=== PATIENT | female | born 1960 | race Caucasian/White ===

== ENCOUNTER 2024-02-05 10:19 | Emergency (ER) | payer MEDICARE, OTHER, SELFPAY ==
[2024-02-05] VITALS (37 sets, daily range): BP systolic 71–133; BP diastolic 49–70; PULSE 89–143; RESP 19–44; TEMP 37.2; O2SAT 89–100; BMI 53.4
--- NOTE | 2024-02-05 10:28 | DI.RAD.S_ITS ---
PROCEDURE: XR CHEST 1V INDICATIONS: Shortness of breath TECHNIQUE: One view of the chest was acquired. COMPARISON: None. FINDINGS: Surgical changes and devices: None. Lungs and pleura: Question mild interstitial pulmonary edema. No pleural effusions or pneumothorax. Mediastinum: Mediastinal contours appear normal. At least moderate cardiomegaly. Bones and chest wall: No suspicious bony lesions. Overlying soft tissues appear unremarkable. IMPRESSION: At least moderate cardiomegaly, question mild interstitial pulmonary edema. Dictated by: Bradley Keenan M.D. on 02/05/2024 at 10:53 Approved by: Bradley Keenan M.D. on 02/05/2024 at 10:54
[2024-02-05 11:11] LABS: Add Manual Diff / Slide Review NO; Basophils Absolute Auto 0 /uL (0-100); Basophils Percent Auto 0.4 % (0-2); Eosinophils Absolute Auto 0 /uL (0-450); Hematocrit 38.8 % (36-46); Hemoglobin 12.4 g/dL (12.0-16.0); Lymphocytes Absolute Auto 300 /uL (1100-4500); Lymphocytes Percent Auto 2.8 % (25-40); Mean Corpuscular HGB Conc 31.9 % (30-36); Mean Corpuscular Hemoglobin 28.5 PG (26-34); Mean Corpuscular Volume 89.4 fL (80-100); Monocytes Absolute Auto 400 /uL (0-900); Monocytes Percent Auto 3.1 % (3-14); Neutrophils Absolute Auto 11100 /uL (1500-7000); Neutrophils Percent Auto 93.7 % (50-75); Platelet Count 269 X10^3/uL (150-400); Red Blood Cell Count 4.34 X10^6/uL (4.0-5.2); Red Cell Distribution Width 15.4 % (11.6-14.8); White Blood Cell Count 11.9 X10^3/uL (4.5-11.0)
[2024-02-05 11:19] LABS: Alanine Aminotransferase 46 IU/L (<35); Albumin 3.9 g/dL (3.5-5.0); Albumin Globulin Ratio 1.2 (1.0-2.8); Alkaline Phosphatase 116 U/L (38-126); Aspartate Aminotransferase 42 IU/L (14-36); BUN Creatinine Ratio 22.5 (6-22); Bilirubin Total 1.2 mg/dL (0.2-1.3); Blood Urea Nitrogen 20 mg/dL (7-17); Calcium 8.9 mg/dL (8.4-10.2); Carbon Dioxide 30 mmol/L (22-32); Chloride 98 mmol/L (98-107); Estimated Glomerular Filt Rate > 60 mL/min (>60); Globulin 3.3 g/dL (1.7-4.1); Glucose 148 mg/dL (80-110); HEMOLYSIS < 15 (0-50); Lactate (Lactic Acid) 2.1 mmol/L (0.7-2.1); Potassium 3.8 mmol/L (3.4-5.1); Sodium 135 mmol/L (137-145); Total Protein 7.2 g/dL (6.3-8.2)
[2024-02-05 11:31] LABS: NT-proBNP (BNP-Adult 18+) 5110 pg/mL (<125); Troponin I 0.019 ng/mL (0.01-0.034)
--- NOTE | 2024-02-05 11:41 | EKG_ITS ---
[address] [address] Test Date: 2024-02-05 Pat Name: Agnieszka Devlin Department: [facility] Room: Gender: Female Ward Aide: MARLA : 1960 Requested By: Order Number: [id number] Reading MD: Jordin Sarabia MD Measurements Intervals [place] Rate: 95 P: RI: QRS: 72 QRSD: 84 T: 120 QT: 284 QTc: 356 Interpretive Statements Atrial fibrillation Nonspecific T wave abnormality NO PRIOR TRACING Electronically Signed On 02-05-2024 16:40:09 PST by Jordin Sarabia MD
[2024-02-05 12:34] LABS: Reflexed Lactate in 2 Hours Y
--- NOTE | 2024-02-05 12:36 | ED_ITS ---
HPI - SOB/Dyspnea General Chief Complaint: Shortness of Breath/Dyspnea Stated Complaint: Hard time breathing Time Seen by Provider: 02/05/24 12:27 Source: patient Mode of arrival: Wheelchair History of Present Illness HPI Narrative: 63-year-old female past medical history significant for atrial fibrillation with prior ablation on Eliquis, type 2 diabetes on insulin, obesity on 2 L home O2. Patient presents with complaint of increasing shortness of breath, states she was not [place] treated for COVID as well as CHF received Lasix got significantly better and felt much better at discharge. She slowly had increasing dyspnea again. Denies any fevers has had some chills. States she has some congestion in her nose. Occasionally has had some chest discomfort when she exerts herself. Denies any nausea or vomiting. States legs are swollen but not as swollen. States she was about 9 lb less since discharge. Has reportedly been taking 60 mg of Lasix although was discharged home on 40 mg per discharge summary. Patient states no issues with bowel movements or urination. Notes she has not been eating much in the last day. They also note that she was supposed to be refitted for a new CPAP mask. Patient's home medications include Eliquis, metoprolol, lisinopril, atorvastatin, Jardiance, spironolactone, metformin, magnesium, calcium carbonate, pregabalin. Patient has had prior cardiac ablation x2 had a stroke about a week after her 1st 1 and then had recurrent ablation about 6 months after that. She states she does have use of her left side. Has been told by her cyanide case hardener that she was not really candidate for cardioversion. Allergic to penicillin and sulfa. Quit smoking 20 years ago, quit alcohol at the same time, no recreational drugs. She was accompanied by her . Her cyanide case hardener is Dr. Angeles and Dr. Phoenix is her blow torch burner. Maricarmen De Los Santos is her primary care physician. Related Data Previous Rx's Medication Instructions Recorded furosemide 20 mg tablet (Lasix) 60 mg (3 x 20 mg) PO DAILY #30 tabs 02/05/24 metoprolol succinate 25 mg capsule 25 mg PO BID #30 ea 02/05/24 sprinkle, ext. release 24 hr Allergies Allergy/AdvReac Type Severity Reaction Status Date / Time SULFA Allergy Severe BLISTERS Uncoded 02/05/24 10:28 ON LIPS PENICILLIN Allergy Mild UPSET Uncoded 02/05/24 10:28 STOMACH Review of Systems Review of Systems ROS Unobtainable: All systems reviewed & are unremarkable except as noted in HPI and below Patient History Medical History (Updated 02/05/24 @ 18:44 by Pedro Fatima DO) Embolic stroke Type 2 diabetes mellitus Obesity Diastolic heart failure Chronic atrial fibrillation Social History Smoking Status: Former smoker Smoking Status: Former smoker Substance Use Type: does not use Exam Narrative Exam Narrative: GENERAL: Alert and oriented x three, obese female in duys-ka-wzlmdenh distress. HEENT: Head normocephalic, atraumatic, EOMI, pupils reactive, face symmetric, moist mucous membranes NECK: Supple, full range of motion CARDIOVASCULAR: Irregularly irregular rate and rhythm without murmurs, rubs or gallops. RESPIRATORY: Breath sounds equal bilaterally, no wheezes rhonchi, crackles bilateral bases. Mild tachypnea. Speaks in 3-4 word sentences. ABDOMEN: Soft, nontender. Normoactive bowel sounds all 4 quadrants. No guarding or rebound, rigidity, no mass : No CVA tenderness EXTREMITIES: Normal range of motion, bilateral lower extremity edema. Neurovascularly intact NEUROLOGICAL: Cranial nerves II through XII grossly intact. Moving all extremities SKIN: Warm, dry, no petechiae, no rashes or lesions. Initial Vital Signs Initial Vital Signs: Vital Signs Temperature 99 F 02/05/24 10:25 Pulse Rate 114 H 02/05/24 10:25 Respiratory Rate 28 H 02/05/24 10:25 Blood Pressure 109/57 L 02/05/24 10:25 Pulse Oximetry 91 02/05/24 10:25 Oxygen Delivery Method Nasal Cannula 02/05/24 10:25 Oxygen Flow Rate 2 02/05/24 10:25 Course Orders Ordered: Discontinued Medications Acetaminophen (Acetaminophen 325 Mg Tablet) 650 mg PO NOW ONE Stop: 02/05/24 12:43 Last Admin: 02/05/24 12:56 Dose: 650 mg Documented By: RIAN Albuterol (Albuterol 2.5 Mg/3 Ml Neb (Adult)) 2.5 mg INH NOW ONE Stop: 02/05/24 13:09 Last Admin: 02/05/24 13:23 Dose: 2.5 mg Documented By: BEBETO Digoxin (Digoxin 500 Mcg/2 Ml Ampul) 500 mcg IV NOW ONE Stop: 02/05/24 14:54 Last Admin: 02/05/24 15:31 Dose: 500 mcg Documented By: RL Furosemide (Furosemide 40 Mg/4 Ml Vial) 40 mg IV NOW ONE Stop: 02/05/24 12:42 Last Admin: 02/05/24 12:56 Dose: 40 mg Documented By: RIAN Vital Signs Vital signs: Vital Signs - 8 hr 02/05/24 10:25 02/05/24 12:55 02/05/24 13:00 Temperature 99 F Pulse Rate 114 H 99 H 142 H Respiratory Rate 28 H 44 H 34 H Blood Pressure 109/57 L Pulse Oximetry 91 98 95 Oxygen Delivery Method Nasal Cannula Nasal Cannula Oxygen Flow Rate 2 2 Fraction of Inspired Oxygen 02/05/24 13:16 02/05/24 13:16 02/05/24 13:24 Temperature Pulse Rate 105 H 108 H Respiratory Rate 25 H 20 Blood Pressure 114/61 Pulse Oximetry 99 98 Oxygen Delivery Method Nasal Cannula Nasal Cannula Oxygen Flow Rate 2 2 Fraction of Inspired Oxygen 28 02/05/24 13:30 02/05/24 13:30 02/05/24 14:00 Temperature Pulse Rate 95 H Respiratory Rate 27 H Blood Pressure 103/66 89/54 L Pulse Oximetry 92 Oxygen Delivery Method Oxygen Flow Rate Fraction of Inspired Oxygen 02/05/24 14:00 02/05/24 14:04 02/05/24 14:04 Temperature Pulse Rate 106 H 121 H Respiratory Rate 23 23 Blood Pressure 95/52 L Pulse Oximetry 94 94 Oxygen Delivery Method Nasal Cannula Oxygen Flow Rate 2 Fraction of Inspired Oxygen 02/05/24 14:11 02/05/24 14:11 02/05/24 14:13 Temperature Pulse Rate 143 H Respiratory Rate 26 H Blood Pressure 80/51 L 109/55 L Pulse Oximetry 92 Oxygen Delivery Method Nasal Cannula Oxygen Flow Rate 2 Fraction of Inspired Oxygen 02/05/24 14:13 02/05/24 14:15 02/05/24 14:15 Temperature Pulse Rate 127 H 112 H Respiratory Rate 26 H 23 Blood Pressure 88/53 L Pulse Oximetry 94 95 Oxygen Delivery Method Nasal Cannula Oxygen Flow Rate 2 Fraction of Inspired Oxygen 02/05/24 14:20 02/05/24 14:20 02/05/24 14:25 Temperature Pulse Rate 118 H Respiratory Rate 23 Blood Pressure 83/58 L 83/51 L Pulse Oximetry 94 Oxygen Delivery Method Oxygen Flow Rate Fraction of Inspired Oxygen 02/05/24 14:25 02/05/24 14:30 02/05/24 14:30 Temperature Pulse Rate 122 H 115 H Respiratory Rate 24 20 Blood Pressure 90/52 L Pulse Oximetry 93 92 Oxygen Delivery Method Oxygen Flow Rate Fraction of Inspired Oxygen 02/05/24 14:35 02/05/24 14:35 02/05/24 14:40 Temperature Pulse Rate 118 H Respiratory Rate 21 Blood Pressure 85/54 L 71/52 L Pulse Oximetry 92 Oxygen Delivery Method Oxygen Flow Rate Fraction of Inspired Oxygen 02/05/24 14:40 02/05/24 14:43 02/05/24 14:43 Temperature Pulse Rate 119 H 126 H Respiratory Rate 25 H 22 Blood Pressure 75/52 L Pulse Oximetry 91 94 Oxygen Delivery Method Oxygen Flow Rate Fraction of Inspired Oxygen 02/05/24 14:45 02/05/24 14:45 02/05/24 14:50 Temperature Pulse Rate 103 H 114 H Respiratory Rate 20 23 Blood Pressure 85/52 L Pulse Oximetry 93 93 Oxygen Delivery Method Oxygen Flow Rate Fraction of Inspired Oxygen 02/05/24 14:50 02/05/24 14:55 02/05/24 14:55 Temperature Pulse Rate 103 H Respiratory Rate 22 Blood Pressure 85/54 L 82/51 L Pulse Oximetry 93 Oxygen Delivery Method Oxygen Flow Rate Fraction of Inspired Oxygen 02/05/24 15:00 02/05/24 15:05 02/05/24 15:05 Temperature Pulse Rate 119 H 130 H Respiratory Rate 20 24 Blood Pressure 93/54 L Pulse Oximetry 95 Oxygen Delivery Method Oxygen Flow Rate Fraction of Inspired Oxygen 02/05/24 15:10 02/05/24 15:10 02/05/24 15:15 Temperature Pulse Rate 102 H Respiratory Rate 25 H Blood Pressure 101/54 L 100/49 L Pulse Oximetry 96 Oxygen Delivery Method Oxygen Flow Rate Fraction of Inspired Oxygen 02/05/24 15:15 02/05/24 15:20 02/05/24 15:20 Temperature Pulse Rate 108 H 107 H Respiratory Rate 24 24 Blood Pressure 93/52 L Pulse Oximetry 98 97 Oxygen Delivery Method Oxygen Flow Rate Fraction of Inspired Oxygen 02/05/24 15:25 02/05/24 15:25 02/05/24 15:30 Temperature Pulse Rate 104 H Respiratory Rate 24 Blood Pressure 102/56 L 105/55 L Pulse Oximetry 98 Oxygen Delivery Method Oxygen Flow Rate Fraction of Inspired Oxygen 02/05/24 15:30 02/05/24 15:31 02/05/24 15:35 Temperature Pulse Rate 103 H 94 H 100 H Respiratory Rate 24 24 Blood Pressure 105/55 L Pulse Oximetry 100 100 Oxygen Delivery Method Oxygen Flow Rate Fraction of Inspired Oxygen 02/05/24 15:35 02/05/24 15:40 02/05/24 15:40 Temperature Pulse Rate 94 H Respiratory Rate 23 Blood Pressure 111/57 L 119/70 Pulse Oximetry 99 Oxygen Delivery Method Nasal Cannula Oxygen Flow Rate 2 Fraction of Inspired Oxygen 02/05/24 15:45 02/05/24 15:45 02/05/24 15:50 Temperature Pulse Rate 91 H 89 Respiratory Rate 24 23 Blood Pressure 129/60 Pulse Oximetry 98 95 Oxygen Delivery Method Nasal Cannula Oxygen Flow Rate 2 Fraction of Inspired Oxygen 02/05/24 15:50 02/05/24 15:55 02/05/24 15:55 Temperature Pulse Rate 92 H Respiratory Rate 23 Blood Pressure 124/58 L 133/62 Pulse Oximetry 98 Oxygen Delivery Method Nasal Cannula Oxygen Flow Rate 2 Fraction of Inspired Oxygen MDM - SOB/Dyspnea Lab Data 02/05/24 10:41 02/05/24 10:41 Labs: Lab Results 02/05/24 02/05/24 Range/Units 10:41 14:35 WBC 11.9 H (4.5-11.0) X10^3/uL RBC 4.34 (4.0-5.2) X10^6/uL Hgb 12.4 (12.0-16.0) g/dL Hct 38.8 (36-46) % MCV 89.4 (80-100) fL MCH 28.5 (26-34) PG MCHC 31.9 (30-36) % RDW 15.4 H (11.6-14.8) % Plt Count 269 (150-400) X10^3/uL Neut % (Auto) 93.7 H (50-75) % Lymph % (Auto) 2.8 L (25-40) % [place] % (Auto) 3.1 (3-14) % Eos % (Auto) 0.0 L (2-4) % Baso % (Auto) 0.4 (0-2) % Neut # (Auto) 75166 H (0236-7647) /uL Lymph # (Auto) 300 L (6289-1131) /uL [place] # (Auto) 400 (0-900) /uL Eos # (Auto) 0 (0-450) /uL Baso # (Auto) 0 (0-100) /uL PT 22.0 H (9.4-12.5) SECONDS INR 2.0 H (0.9-1.3) Sodium 135 L (137-145) mmol/L Potassium 3.8 (3.4-5.1) mmol/L Chloride 98 (98-107) mmol/L Carbon Dioxide 30 (22-32) mmol/L BUN 20 H (7-17) mg/dL Creatinine 0.89 (0.52-1.04) mg/dL Estimated GFR > 60 (>60) mL/min BUN/Creatinine Ratio 22.5 H (6-22) Glucose 148 H (80-110) mg/dL Lactate 2.1 1.5 (0.7-2.1) mmol/L Calcium 8.9 (8.4-10.2) mg/dL Total Bilirubin 1.2 (0.2-1.3) mg/dL AST 42 H (14-36) IU/L ALT 46 H (<35) IU/L Alkaline Phosphatase 116 (38-126) U/L Troponin I 0.019 0.019 (0.01-0.034) ng/mL NT-Pro-B Natriuret Pep 5110 H (<125) pg/mL Total Protein 7.2 (6.3-8.2) g/dL Albumin 3.9 (3.5-5.0) g/dL Globulin 3.3 (1.7-4.1) g/dL Albumin/Globulin Ratio 1.2 (1.0-2.8) Urine Dip Bedside Urine Glucose 1000 mg/dl Bedside Urine Bilirubin - Negative Bedside Urine Ketone - Negative Urine Specific [place] 1.005 Bedside Urine Occult Blood - Negative Bedside Urine pH 6.5 Bedside Urine Protein - Negative Bedside Urine Urobilinogen - Negative Bedside Urine Nitrite - Negative Bedside Urine Leukocytes - Negative Esterase Imaging Data Chest x-ray: Radiologist's Impression: Agnieszka Devlin??63??F??1960 ? Allergy/Adv: [SULFA], [PENICILLIN] Close Chest X-Ray (Signed) Bradley Keenan - 02/05/24 Launch?Image [address] [address] XRay Report Signed Patient: Agnieszka Devlin MR#: [id number] : 1960 Acct:[id number] Age/Sex: 63 / F Date of Service: 02/05/24 Loc: ED Accession Number: [id number] Procedure: XR chest 1V Ordering Provider: Beth Moore D.O. PROCEDURE: XR CHEST 1V INDICATIONS: Shortness of breath TECHNIQUE: One view of the chest was acquired. COMPARISON: None. FINDINGS: Surgical changes and devices: None. Lungs and pleura: Question mild interstitial pulmonary edema. No pleural effusions or pneumothorax. Mediastinum: Mediastinal contours appear normal. At least moderate cardiomegaly. Bones and chest wall: No suspicious bony lesions. Overlying soft tissues appear unremarkable. IMPRESSION: At least moderate cardiomegaly, question mild interstitial pulmonary edema. Dictated by: Bradley Keenan M.D. on 02/05/2024 at 10:53 Approved by: Bradley Keenan M.D. on 02/05/2024 at 10:54 ECG Data Attestation: I personally reviewed and interpreted this ECG as follows: Prior ECG tracings: not available for review Interpretation: AFib with rate of 95, QRS 84 QTC of 356. No acute ST elevation or depression. MDM Narrative Medical decision making narrative: Increased shortness of breath treated at [place] last week for congestive heart failure and COVID. Patient states she was discharged from [place] 60 mg daily, felt much better at discharge in his had recurrent dyspnea. White blood cell count 11.9 hemoglobin 12.4, platelets of 269, predominance of neutrophils. INR is 2, sodium is 135 potassium 3.8 chloride 98 CO2 is 30 BUN 22 creatinine 0.89 glucose of 148 total bili is normal 1.2 AST ALT are slightly elevated at 42 and 46 troponin 0.019 with a BNP of 5110. No prior labs available for comparison. Repeat troponin Chest x-ray shows moderate cardiomegaly question mild interstitial pulmonary edema. EKG shows AFib rate of 95, no acute ST elevation or depression. Lasix 40mg, patient did have 60mg earlier today. Attempting to get ECHO report from [place], patient's discharge diagnosis CHF, atrial fibrillation, COVID had 7 L urine output during her stay over proximally 24 hours. Patient's labs at [place] note a BNP in the 300 range appears to likely be a pro BNP with similar caught off values, they have high sensitive troponin which was negative. Patient does have recent COVID infection with increased shortness of breath slightly tachycardic slightly hypotensive her normal home O2 of 2 L, patient is anticoagulants Eliquis so PE seems less likely to be source. She has had increased orthopnea although states swelling of her lower extremities has been somewhat improved. 1L urine output prior to lasix Spoke with Dr. Angeles, cardiology. He is on-call in his also patient's personal cyanide case hardener. He was familiar with the patient states she had an EF of 50 55% with a normal in July. Reviewed patient's findings her most recent hospitalization and workup. He does not have access to her recent echo either would recommend repeat echo for unable to obtain. Did not note that when patient has been moved out of her bed she wanted to be more upright became quite tachycardic with a AFib RVR and hypotensive. Has been somewhat persistent but was moved back to the bed. She notes that she would have intermittent elevations up to 180 beats per minute but had some longer pauses had her metoprolol decreased from 50-25 mg daily several months ago. He would recommend loading with digoxin 500 mcg, can continue with 250 mcg every 6 hours but to monitor closely for any potential bradycardia. Spoke with Dr. Fatima hospitalist; discussed patient prior to AFib RVR, reviewed recommendations from Cardiology awaiting repeat troponin and will call back. Repeat troponins negative, Dr. Fatima came and evaluated the patient. He also spoke with Dr. Angeles as well after further discussion patient's preferences to return home. He did offer observation with digoxin loading. She did receive a single dose of digoxin but we will continue with plan for metoprolol 25 mg b.i.d. and continuing Lasix 60 mg daily on outpatient. Discussed with patient and her . Patient wishes for discharge home. Patient's is going to stop by Cardiology before she was discharged to help set up follow up appointment discussed return precautions. Patient appears improved prior to discharge. Was with a walker and able to ambulate a little bit easier. Work of breathing has not improved. Critical Care Time Critical Care Time Critical Care Time: Yes Total Critical Care Time: 45 Attestation: The high probability of a clinically significant, sudden or life threatening deterioration of the cardiac/pulmonary system(s) required my full and direct attention, intervention and personal management. The aggregate critical care time was [--] minutes. This time is in addition to time spent performing reported procedures but includes the following: [x] Data Review and interpretation [x] Patient assessment and monitoring of vital signs [x] Documentation [x] Medication orders and management Discharge Plan Departure Patient Disposition: Home Clinical Impression: Acute on chronic congestive heart failure, Atrial fibrillation with rapid ventricular response Activity Restrictions/Additional Instructions: Follow up with Cardiology. I spoke with Dr. Angeles your cyanide case hardener today he is aware that you have been in the emergency department and of your workup. I was unable to obtain your echo today but talk with your cyanide case hardener and/or primary care to follow up this report. Please continue with your furosemide or Lasix 60 mg daily. A prescription for additional is included in your discharge paperwork. Also please increase your metoprolol to 25 mg twice daily. A prescription for extra metoprolol is also included. Please return if you are having new or worsening lightheadedness or passing out, increasing chest pain or shortness of breath, increasing swelling of your extremities, increasing weight consistent with water retention or other new or concerning changes. Prescriptions: New metoprolol succinate 25 mg capsule,sprinkle,ER 24hr 25 mg PO BID Qty: 30 0RF furosemide [Lasix] 20 mg tablet 60 mg PO DAILY Qty: 30 0RF Referrals: Razia De Los Santos PA-C [Primary Care Provider] - Stand Alone Forms: Patient Portal/API/Survey
[2024-02-05] MEDS: FUROSEMIDE 40 MG/4 ML VIAL IV (12:56)
[2024-02-05] MEDS: ACETAMINOPHEN 325 MG TABLET 650 MG PO (12:56)
--- NOTE | 2024-02-05 13:05 | PC.NURSE ---
Pt assisted with 3x staff and walker up to sitting on side of bed. Pt continues to be SOB and feels like she needed to sit up in a recliner. Recliner brought to room and assisted pt into recliner. Pt bedside desk in front of pt with call light and tissues. Lesli care performed during repositioning. Pt's abdomen is red, tender to tough, firm. Pt states has been like that and the other hospital was concerned about it too. Notified Dr. Moore.
[2024-02-05] MEDS: ALBUTEROL 2.5 MG/3 ML NEB (ADULT) INH (13:23)
--- NOTE | 2024-02-05 14:35 | PC.NURSE ---
Pt able to use a walker and pivot to reposition into the bed gurney. New linens placed on bed. Additional sam care provided.
[2024-02-05 14:54] LABS: Lactate 2HR (Lactic Acid Rflx) 1.5 mmol/L (0.7-2.1)
[2024-02-05 15:05] LABS: Troponin I 0.019 ng/mL (0.01-0.034)
[2024-02-05] MEDS: DIGOXIN 500 MCG/2 ML AMPUL IV (15:31)
--- NOTE | 2024-02-05 16:10 | PC.NURSE ---
ECHO unable to be completed today, will be completed tomorrow if admitted. Dr Moore aware
--- NOTE | 2024-02-05 16:14 | P.CONS_ITS ---
History of Present Illness Consult details Date Patient Seen: 02/05/24 Time Patient Seen: 16:16 Chief complaint: Hard time breathing Reason for consult: shortness of breath Requesting provider: Beth Moore Narrative: This is a 63 year old female with chronic atrial fibrillation, prior CVA, diastolic heart failure, Obesity with likely OHS, DM2, HTN who presented to the ER today with complaint of shortness of breath. She was recently admitted to an OSH for CHF exacerbation, with repoted 7L of diuresis and discharge home. She was only supposed to be on 40 mg of furosemide, but also continued to take an additional 20 mg since discharge. She does not report any increase in weight since discharge, continued improvement in her leg edema actually. She reports improvement after initial diuresis in the ER and initial therapies. She would like to go home if possible. I was able to turn down her oxygen and she at least briefly maintained O2 saturations in the mid 90s on room air. Troponin was 0.019 x2. ProBNP was elevated at 5110. Medicine was asked to evaluate for admission. She did get dose of digoxin in the ER. In review of her records from outpatient clinic, patient has a history of difficulty to control atrial fibrillation, and chronic dyspnea on exertion. Upon my evaluation her symptoms had improved to near baseline. 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 Given her previous difficult control (has tachybrady syndrome), chronic dyspnea on exertion in the setting of obesity, and improvement in acute symptoms, he thought it reasonable to stop digoxin and continue home medications at this time. Given her improvement, he was also okay with discharge home given recent TTE at outside hospital and negative troponins. I discussed management options with the patient as well, and offered continued observation or discharge home, and the patient elected for discharge home. Meds Home Medications and Allergies Home Medications Medication Instructions Recorded Confirmed Type furosemide 20 mg tablet (Lasix) 60 mg (3 x 20 mg) PO DAILY #30 tabs 02/05/24 Rx metoprolol succinate 25 mg capsule 25 mg PO BID #30 ea 02/05/24 Rx sprinkle, ext. release 24 hr Allergies Allergy/AdvReac Type Severity Reaction Status Date / Time SULFA Allergy Severe BLISTERS Uncoded 02/05/24 10:28 ON LIPS PENICILLIN Allergy Mild UPSET Uncoded 02/05/24 10:28 STOMACH Review of Systems Review of Systems Narrative: All other systems reviewed with the patient and are negative unless otherwise stated. Exam Vital Signs (past 8 hours): - 02/05/24 10:25 02/05/24 12:55 02/05/24 13:00 Temperature 99 F Pulse Rate 114 H 99 H 142 H Respiratory Rate 28 H 44 H 34 H Blood Pressure 109/57 L Pulse Oximetry 91 98 95 Oxygen Delivery Method Nasal Cannula Nasal Cannula Oxygen Flow Rate 2 2 Fraction of Inspired Oxygen 02/05/24 13:16 02/05/24 13:16 02/05/24 13:24 Temperature Pulse Rate 105 H 108 H Respiratory Rate 25 H 20 Blood Pressure 114/61 Pulse Oximetry 99 98 Oxygen Delivery Method Nasal Cannula Nasal Cannula Oxygen Flow Rate 2 2 Fraction of Inspired Oxygen 28 02/05/24 13:30 02/05/24 13:30 02/05/24 14:00 Temperature Pulse Rate 95 H Respiratory Rate 27 H Blood Pressure 103/66 89/54 L Pulse Oximetry 92 Oxygen Delivery Method Oxygen Flow Rate Fraction of Inspired Oxygen 02/05/24 14:00 02/05/24 14:04 02/05/24 14:04 Temperature Pulse Rate 106 H 121 H Respiratory Rate 23 23 Blood Pressure 95/52 L Pulse Oximetry 94 94 Oxygen Delivery Method Nasal Cannula Oxygen Flow Rate 2 Fraction of Inspired Oxygen 02/05/24 14:11 02/05/24 14:11 02/05/24 14:13 Temperature Pulse Rate 143 H Respiratory Rate 26 H Blood Pressure 80/51 L 109/55 L Pulse Oximetry 92 Oxygen Delivery Method Nasal Cannula Oxygen Flow Rate 2 Fraction of Inspired Oxygen 02/05/24 14:13 02/05/24 14:15 02/05/24 14:15 Temperature Pulse Rate 127 H 112 H Respiratory Rate 26 H 23 Blood Pressure 88/53 L Pulse Oximetry 94 95 Oxygen Delivery Method Nasal Cannula Oxygen Flow Rate 2 Fraction of Inspired Oxygen 02/05/24 14:20 02/05/24 14:20 02/05/24 14:25 Temperature Pulse Rate 118 H Respiratory Rate 23 Blood Pressure 83/58 L 83/51 L Pulse Oximetry 94 Oxygen Delivery Method Oxygen Flow Rate Fraction of Inspired Oxygen 02/05/24 14:25 02/05/24 14:30 02/05/24 14:30 Temperature Pulse Rate 122 H 115 H Respiratory Rate 24 20 Blood Pressure 90/52 L Pulse Oximetry 93 92 Oxygen Delivery Method Oxygen Flow Rate Fraction of Inspired Oxygen 02/05/24 14:35 02/05/24 14:35 02/05/24 14:40 Temperature Pulse Rate 118 H Respiratory Rate 21 Blood Pressure 85/54 L 71/52 L Pulse Oximetry 92 Oxygen Delivery Method Oxygen Flow Rate Fraction of Inspired Oxygen 02/05/24 14:40 02/05/24 14:43 02/05/24 14:43 Temperature Pulse Rate 119 H 126 H Respiratory Rate 25 H 22 Blood Pressure 75/52 L Pulse Oximetry 91 94 Oxygen Delivery Method Oxygen Flow Rate Fraction of Inspired Oxygen 02/05/24 14:45 02/05/24 14:45 02/05/24 14:50 Temperature Pulse Rate 103 H 114 H Respiratory Rate 20 23 Blood Pressure 85/52 L Pulse Oximetry 93 93 Oxygen Delivery Method Oxygen Flow Rate Fraction of Inspired Oxygen 02/05/24 14:50 02/05/24 14:55 02/05/24 14:55 Temperature Pulse Rate 103 H Respiratory Rate 22 Blood Pressure 85/54 L 82/51 L Pulse Oximetry 93 Oxygen Delivery Method Oxygen Flow Rate Fraction of Inspired Oxygen 02/05/24 15:00 02/05/24 15:05 02/05/24 15:05 Temperature Pulse Rate 119 H 130 H Respiratory Rate 20 24 Blood Pressure 93/54 L Pulse Oximetry 95 Oxygen Delivery Method Oxygen Flow Rate Fraction of Inspired Oxygen 02/05/24 15:10 02/05/24 15:10 02/05/24 15:15 Temperature Pulse Rate 102 H Respiratory Rate 25 H Blood Pressure 101/54 L 100/49 L Pulse Oximetry 96 Oxygen Delivery Method Oxygen Flow Rate Fraction of Inspired Oxygen 02/05/24 15:15 02/05/24 15:20 02/05/24 15:20 Temperature Pulse Rate 108 H 107 H Respiratory Rate 24 24 Blood Pressure 93/52 L Pulse Oximetry 98 97 Oxygen Delivery Method Oxygen Flow Rate Fraction of Inspired Oxygen 02/05/24 15:25 02/05/24 15:25 02/05/24 15:30 Temperature Pulse Rate 104 H Respiratory Rate 24 Blood Pressure 102/56 L 105/55 L Pulse Oximetry 98 Oxygen Delivery Method Oxygen Flow Rate Fraction of Inspired Oxygen 02/05/24 15:30 02/05/24 15:31 02/05/24 15:35 Temperature Pulse Rate 103 H 94 H 100 H Respiratory Rate 24 24 Blood Pressure 105/55 L Pulse Oximetry 100 100 Oxygen Delivery Method Oxygen Flow Rate Fraction of Inspired Oxygen 02/05/24 15:35 02/05/24 15:40 02/05/24 15:40 Temperature Pulse Rate 94 H Respiratory Rate 23 Blood Pressure 111/57 L 119/70 Pulse Oximetry 99 Oxygen Delivery Method Nasal Cannula Oxygen Flow Rate 2 Fraction of Inspired Oxygen 02/05/24 15:45 02/05/24 15:45 02/05/24 15:50 Temperature Pulse Rate 91 H 89 Respiratory Rate 24 23 Blood Pressure 129/60 Pulse Oximetry 98 95 Oxygen Delivery Method Nasal Cannula Oxygen Flow Rate 2 Fraction of Inspired Oxygen 02/05/24 15:50 02/05/24 15:55 02/05/24 15:55 Temperature Pulse Rate 92 H Respiratory Rate 23 Blood Pressure 124/58 L 133/62 Pulse Oximetry 98 Oxygen Delivery Method Nasal Cannula Oxygen Flow Rate 2 Fraction of Inspired Oxygen Fraction of Inspired Oxygen 28 SaO2/FiO2 Ratio 350 Oxygen Delivery Method Nasal Cannula Oxygen Flow Rate 2 Narrative Exam Narrative: Gen: obese female, no acute distress, WDWN CV: normal rate, irregularly irregular rhythm. Pulm: bibasilar crackles Abd S NT ND Ext: trace to 1+ b/l LE edema Objective ECG Impression: atrial fibrillation, rate controlled, no acute ischemic changes. Labs 02/05/24 10:41 02/05/24 10:41 Labs: Laboratory Results - last 24 hr 02/05/24 02/05/24 10:41 14:35 WBC 11.9 H RBC 4.34 Hgb 12.4 Hct 38.8 MCV 89.4 MCH 28.5 MCHC 31.9 RDW 15.4 H Plt Count 269 Neut % (Auto) 93.7 H Lymph % (Auto) 2.8 L [place] % (Auto) 3.1 Eos % (Auto) 0.0 L Baso % (Auto) 0.4 Neut # (Auto) 49991 H Lymph # (Auto) 300 L [place] # (Auto) 400 Eos # (Auto) 0 Baso # (Auto) 0 PT 22.0 H INR 2.0 H Sodium 135 L Potassium 3.8 Chloride 98 Carbon Dioxide 30 BUN 20 H Creatinine 0.89 Estimated GFR > 60 BUN/Creatinine Ratio 22.5 H Glucose 148 H Lactate 2.1 1.5 Calcium 8.9 Total Bilirubin 1.2 AST 42 H ALT 46 H Alkaline Phosphatase 116 Troponin I 0.019 0.019 NT-Pro-B Natriuret Pep 5110 H Total Protein 7.2 Albumin 3.9 Globulin 3.3 Albumin/Globulin Ratio 1.2 [facility] Medical History (Updated 02/05/24 @ 18:44 by Pedro Fatima DO) Embolic stroke Type 2 diabetes mellitus Obesity Diastolic heart failure Chronic atrial fibrillation Tobacco & Substance Use Smoking Status: Former smoker Assessment & Plan Assessment & Plan narrative: 1. Acute on chronic diastolic heart failure - recommend continuing 60 mg of prednisone daily, appears to be making good progress on diuresis with continued improvement in leg edema reported. - ACS highly unlikely, reassuring EKG and normal troponins x2. 2. Atrial fibrillation with RVR, improved - as noted above discussed with preschool substitute teacher. She has difficult to control rates with history of tachybrady syndrome Recommendations - continue 60 mg PO daily of furosemide, close PCP and cardiology follow up - continue home metoprolol 25 mg BID, patient's heart rate appears chronically difficult to control. - Patient overall appears to be improving from her recent outside admission, the reason for her acute worsening is not entirely clear but currently she appears well and no different from her apparent outpatient baseline as noted in her cardiologists most recent progress note (difficult to control HR, obesity as the primary company driver of her dyspnea). - Discussed with ER provider, preschool substitute teacher, and patient. Patient was offered observation for continued rate control or discharge home, patient wished to discharge home. Code: Full, surrogate is patient's spouse I have utilized all available immediate resources to obtain, update, or review the patient's current medications. Dispo: After above discussion with multiple providers, patient, patient agreeable for discharge home. Additional history obtained via discussions with the ER provider and caridologist. These discussions contributed to the creation of the above assessment and plan. I have reviewed patient's presenting documentation, labs, and imaging personally. Time-Based Coding :: [TOTAL MINUTES] spent with patient and on the chart (including review of chart, obtaining history, exam, reviewing outside data, placing orders, documenting exam and treatment plan, and counseling patient) on [DATE].
== END 2024-02-05 17:00 | disposition home or self-care (01) ==
PROVIDERS: Emergency Provider Emergency Medicine; PCP Physician Assistant
DX: I48.20 Chronic atrial fibrillation, unspecified (principal); Z79.01 Long term (current) use of anticoagulants; I50.9 Heart failure, unspecified; R07.9 Chest pain, unspecified; R79.89 Other specified abnormal findings of blood chemistry; R00.0 Tachycardia, unspecified; I95.9 Hypotension, unspecified; R06.02 Shortness of breath; Z86.16 Personal history of COVID-19; R06.01 Orthopnea; E66.9 Obesity, unspecified; Z68.43 Body mass index [BMI] 50.0-59.9, adult
CPT/HCPCS: 36415; 71045; 80053; 81003; 83605; 83880; 84484; 85025; 85610; 93005; 94640; 96374; 96375; 99285; 99291; J1160; J1940; J7613

== ENCOUNTER → 2024-02-08 14:38 | Outpatient (CLI) | payer MEDICARE, SELFPAY ==
--- NOTE | 2024-02-08 14:39 | DI.ECHO.S_ITS ---
[facility] +---------+ [facility] : : [address] : : [place] : : [id number] : : Phone: [phone] Echocardiogram Report + + :Name: TANYA HUGHES Study Date: 02/08/2024 Height: 67 in : :Hospital ReadingLocation: Weight: 319 lb : : Gender: Female BSA: 2.5 m2 : :: 1960 Age: 63 yrs BP: 147/86 mmHg: :Reason For Study: CHRONIC DIASTOLIC HEART FAILURE : :Ordering Physician: CARLITA, : :CATY Performed By: Shanthi Hooker : :Referring: CATY ZAZUETA : + + Interpretation Summary Left ventricular systolic function remains grossly normal with an estimated ejection fraction around 55 to 60% without any obvious focal wall motion abnormality and appears unchanged from the previous study. Left ventricular size and wall thickness remain normal. While diastolic function is challenging to assess in the presence of atrial fibrillation, filling pressures are likely normal and unchanged from the previous study. The right ventricle remains mildly enlarged with mild to moderate hypokinesis that grossly appears unchanged from the previous study. Right ventricular systolic pressure cannot be estimated but CVP is likely around 3 mmHg which is lower compared to the previous study. The cardiac valves grossly appeared normal without any obvious significant functional abnormality and appears unchanged from the previous study. The ascending aorta is borderline enlarged at 3.5 cm compared to 3.3 cm previously. The patient was in atrial fibrillation at 70 to 90 bpm which is slightly faster compared to the previous study. Procedure: A two-dimensional transthoracic echocardiogram with color flow and Doppler was performed. The study quality was technically difficult. A contrast injection of Definity was performed to improve assessment of LV function. The patient was in atrial fibrillation with heart rates between 66- 84 bpm during the exam. Left Ventricle: The left ventricle is normal in size and wall thickness. Left ventricular systolic function is probably normal. The ejection fraction is estimated to be 55-60%. There are no obvious focal wall motion abnormalities noted but poor endocardial definition reduces the sensitivity for the detection of such. This is unchanged compared to the previous study. Diastolic parameters suggest probable normal left ventricular diastolic function and normal filling pressures. This is unchanged compared to the previous study. Right Ventricle: The right ventricle is not well visualized. The right ventricle is mildly dilated. Right ventricular systolic function is mild to moderately reduced. This is unchanged compared to the previous study. Atria: The left atrium is mildly dilated. Both atria have mildly decreased in size since the prior echo exam. The right atrium is borderline dilated. There is no Doppler evidence for an interatrial shunt. Mitral Valve: There is mild mitral annular calcification. The mitral valve is grossly normal. There is trace mitral regurgitation. Aortic Valve: The aortic valve is not well visualized. The aortic valve is mildly calcified. The aortic valve opens well. There is no aortic valve stenosis. The peak aortic velocity is 1.8 m/sec. The aortic valve mean gradient is 8 mmHg. No aortic regurgitation is present. Tricuspid Valve: The tricuspid valve is normal in structure and function. There is trace tricuspid regurgitation. Pulmonary artery pressures cannot be estimated because of the lack of a measurable TR jet velocity but the IVC suggests a CVP of around 3 mmHg. Pulmonic Valve: The pulmonic valve is not well visualized. There is no pulmonic valvular regurgitation. Great Vessels: The aortic root is normal size. The ascending aorta is at the upper limits of normal in size. The IVC is of normal diameter and collapses greater than 50% with a sniff. This suggests a low right atrial pressure of 3 mm Hg. Pericardium/ Pleura There is no pericardial effusion. There is no pleural effusion. MMode/2D Measurements & Calculations LVIDd: 4.6 cm LVOT diam: 2.0 cm LVIDs: 2.9 cm Ao root diam: 2.8 cm FS: 37.3 % asc Aorta Diam: 3.5 cm EPSS: 1.1 cm IVSd: 0.99 cm LVPWd: 1.1 cm LV miles. diameter/BSA (cm/m^2): 1.9 LV sys. diameter/BSA (cm/m^2): 1.2 LA A2 area: 22.9 cm2 RA long axis: 5.4 cm LA A4 area: 27.4 cm2 RA area: 21.2 cm2 LA length (vol): 5.8 cm RA vol: 70.7 ml LA vol: 91.8 ml RA : 28.7 ml/m2 LA vol index: 37.2 ml/m2 IVC diam: 1.5 cm RVD1 (basal): 4.3 cm RVD2 (mid): 3.1 cm TAPSE: 1.5 cm Doppler Measurements & Calculations Ao V2 max: 181.9 cm/sec LVOT Max William: 77.0 cm/sec Ao V2 mean: 136.4 cm/sec LV V1 max P.4 mmHg Ao max P.2 mmHg LV V1 VTI: 16.9 cm Ao mean P.0 mmHg SHIRLEY(I,D): 1.4 cm2 Ao V2 VTI: 36.8 cm SHIRLEY(V,D): 1.3 cm2 sev ratio: 0.46 SHIRLEY indexed to BSA (cm^2/m^2): 0.58 MV E max william: 108.0 cm/sec PA V2 max: 108.2 cm/sec MV A max william: 2.0 cm/sec PA V2 mean: 76.5 cm/sec MV E/A: 54.5 PA mean P.6 mmHg Med Peak E' William: 8.1 cm/sec PA pr(Accel): 39.6 mmHg E/E' med: 13.4 Lat Peak E' William: 11.2 cm/sec E/E' lat: 9.6 E/e' average: 11.5 MV dec time: 0.17 sec SV(LVOT): 52.6 ml Reading Physician:08:53 AM
== END ==
PROVIDERS: Referring Provider Specialist; Visit Provider Specialist
DX: I34.81 Nonrheumatic mitral (valve) annulus calcification (principal); I50.32 Chronic diastolic (congestive) heart failure; I48.19 Other persistent atrial fibrillation
CPT/HCPCS: 93306

== ENCOUNTER → 2024-09-10 13:32 | Outpatient (CLI) | payer MEDICARE, SELFPAY ==
--- NOTE | 2024-09-10 13:34 | DI.CT.S_ITS ---
PROCEDURE: CT CHEST HIGH RESOLUTION INDICATIONS: ILD, eval for change TECHNIQUE: Noncontrast 1.0 and 5.0 mm thick contiguous axial sections from the pulmonary apex to the posterior costophrenic angles, with 7 mm thick coronal and sagittal MIP reformats. 1 mm thick dynamic expiratory images acquired through the upper, mid, and lower lungs. 1.0 mm thick axial sections acquired from the sarah to the posterior costophrenic angles in the prone end-inspiration position. For radiation dose reduction, the following was used: automated exposure control, adjustment of mA and/or kV according to patient size. COMPARISON: [facility], CT, THORAX WITHOUT CONTRAST, 02/18/2015, 12:33. FINDINGS: Image quality: Diagnostic Lungs and pleura: Significant mosaic attenuation best seen on expiratory images. Scattered scarring and atelectasis, particularly in the left lower lobe which has a moderate degree of volume loss. Segmental atelectasis also again seen in the left upper lobe, also with surrounding volume loss. No peripheral reticulation. No dense airspace disease or pleural effusions. Increased diffuse left pleural thickening with calcifications. Mediastinum, heart, and esophagus: Postsurgical changes at the GE junction. Small hiatal hernia. Cardiomegaly. Coronary calcifications and annular calcifications. There is slight mediastinal shift toward left, as before. Prominent mediastinal lymph nodes, for example pretracheal lymph node measures 1 cm short axis. Dilated main pulmonary artery of 4 cm. Chest wall and thyroid: Unremarkable Upper abdomen: Upper abdominal postsurgical changes with gastric bypass. Bones: There are degenerative osseous changes. No aggressive appearing osseous abnormality. IMPRESSION: Increased left pleural thickening with calcifications, correlate for any exposures, most notably asbestos. Correlate also for any prior pleural procedures. Volume loss of the left hemithorax with areas of segmental atelectasis. Leftward mediastinal shift. Significant parenchymal mosaic attenuation, compatible with chronic small airways disease. No peripheral reticulation to suggest fibrosis. ATS 2018 HRCT classification: Not compatible with UIP ILD Continue follow-up suggested to assess for progression and any pulmonary nodules, as the patient has higher risk. Cardiomegaly and dilated main pulmonary artery, suggestive of high pulmonary pressures. Prominent mediastinal lymph nodes, possibly reactive. Attention on follow-up. Dictated by: Chalino Cordon M.D. on 09/11/2024 at 13:31 Approved by: Chalino Cordon M.D. on 09/11/2024 at 13:38
== END ==
LOC: CT 13:33
PROVIDERS: Family Provider Family Medicine; PCP Family Medicine; Referring Provider Internal Medicine Critical Care Medicine; Visit Provider Internal Medicine Critical Care Medicine
DX: J84.9 Interstitial pulmonary disease, unspecified (principal); J92.9 Pleural plaque without asbestos; J98.11 Atelectasis; I51.7 Cardiomegaly; K44.9 Diaphragmatic hernia without obstruction or gangrene
CPT/HCPCS: 71250

== ENCOUNTER 2025-02-24 12:30 | Outpatient (RCR) | payer MEDICARE, SELFPAY | END 2025-02-24 14:30 | LOC: PUL 12:30 | PROVIDERS: Family Provider Family Medicine; PCP Family Medicine; Referring Provider Internal Medicine Critical Care Medicine; Visit Provider Internal Medicine Critical Care Medicine | DX: J84.115 Respiratory bronchiolitis interstitial lung disease (principal) | CPT/HCPCS: G0237; G0238 ==